=== PATIENT | female | born 1935 | race Caucasian/White ===

== ENCOUNTER 2021-01-11 09:20 | Day surgery (SDC) | payer MEDICARE, BC ==
[2021-01-09 13:18] VITALS: BMI 24.1
[~2021-01-11 09:20] MED LIST: ALBUTEROL NEB (CONC) 2.5 MG/0.5 ML INHALATION ONE; DEXAMETHASONE SOD PHOSPHATE 4 MG/ML 1 ML VIAL IV ONE; LACTATED RINGERS 1,000 ML IV SCH; LIDOCAINE 1% (10MG/ML) FOR IV START INTRADERMA PRN; LIDOCAINE 2% (PF) 20 MG/ML 5 ML VIAL INHALATION ONE; LIDOCAINE VISCOUS 300 MG/15 ML CUP MUCOUS MEM ONE; ONDANSETRON 4 MG/2 ML VIAL IVP ONE; SODIUM CHLORIDE 0.9% 1,000 ML IV SCH
--- NOTE | 2021-01-11 11:45 | CT ---
EXAMINATION TYPE: CT Chest tana June Protocol DATE OF EXAM: 01/11/2021 COMPARISON: None HISTORY: Navigational bronchoscopy. CT DLP: 543.8 mGycm Automated exposure control for dose reduction was used. FINDINGS: There are multiple pulmonary nodules present. In the right upper lobe on axial image #15 there is a 1 3 mm nodule with pleural extensions which shows soft tissue in lobular contour. In the left upper lob e on axial image #16, 15 Groundglass opacity present as well as a soft tissue nodule measuring 6 mm. Groundglass nodularity pr esent in the right upper lobe on axial image 11. On axial image #19 in the subpleural location is a 3 mm nodule right upper lobe. Groundglass nodule present in the subpleural location right upper lobe l aterally on axial image 21. In the right hilar location there is a spiculated mass measuring 2.5 cm, axial image 32, right middle lobe. There are scattered areas of mosaic perfusion at the lung bases. T here is no pleural or pericardial effusion. Lack of intravenous contrast could compromise sensitivity. Atheromatous changes are present within th e aorta. There is coronary artery calcification present. Aortic calcification is also seen. No definite adrenal mass. No mediastinal, axillary, or hilar adenopathy evident. IMPRESSION: FINDINGS MAY REPRESENT BRONCHOGENIC CARCINOMA, METASTATIC DISEASE NOT EXCLUDED. CORONARY ARTERY DISEA SE. ADDITIONAL FINDINGS ABOVE.
[2021-01-11] MEDS ORDERED: GLYCOPYRROLATE 0.2 MG/ML 2 ML VIAL ONE (12:47)
[2021-01-11] MEDS ORDERED: PROPOFOL 10 MG/ML 20 ML VIAL IV ONE (12:47)
[2021-01-11] MEDS ORDERED: SUCCINYLCHOLINE CHLORIDE 100 MG/5 ML SYR IV ONE (12:47)
[2021-01-11] MEDS ORDERED: fentaNYL (PF) 50 MCG/ML 2 ML AMP ONE (12:47)
[2021-01-11] MEDS ORDERED: ePHEDrine SULFATE/0.9% NACL/PF 50 MG/5 ML SYRINGE IV ONE (12:47)
[2021-01-11] MEDS ORDERED: LIDOCAINE 1% INJ 10MG/ML (20 ML MDV) ONE (12:47)
--- NOTE | 2021-01-11 13:52 | P.PCN ---
Date of Procedure: 01/11/21 Preoperative Diagnosis: Right middle lobe mass Postoperative Diagnosis: Right middle lobe mass Procedure(s) Performed: 1 Navigational bronchoscopy 2 transbronchial biopsy of the right middle lobe mass 3 transbronchial needle aspirate of the right middle lobe mass 4 transbronchial brushing of the right middle lobe mass 5 transbronchial needle aspirate of right paratracheal lymph node, station 4R. Anesthesia: GETA Surgeon: Suzie Unger Manager Internal #1: Jackie Long Estimated Blood Loss (ml): 0 Pathology: other Condition: stable Disposition: same day Operative Findings: Indication, right middle lobe mass, right paratracheal lymph node This procedure was done under general anesthesia. There is a navigational bronchoscopy. The patient initially had a CAT scan of the chest utilizing the [employer] protocol. The images were uploaded into the software and the right middle lobe mass was identified and appropriate calibrations and mapping was done. Following that, all of this information was uploaded into the [employer] navigational tower. The patient was brought into the endoscopy suite. The patient was intubated by [employer]. The patient had a 7.5 ET tube placed and she was secured in place. Following that, flexible bronchoscope was introduced through the orotracheal tube and an airway inspection was done. The visualized airways included the mid and the distal trachea, bilateral mainstem bronchi, right upper lobe bronchus, bronchus intermedius, right middle lobe and right lower lobe bronchus and the various 10 segments on the right. Bronchoscope was moved to the left and the visualized airways included the left mainstem bronchus, left upper lobe bronchus and left lower lobe bronchus and the various 8 segments on the left. No evidence of any endobronchial lesions or tumors. No foreign bodies. No mucosal abnormalities identified. Using navigational guidance, the bronchoscope was directed to the right middle lobe. The bronchoscope was later on medicated to the lateral segment of the right middle lobe. Using a navigational for sepsis, transbronchial biopsies of the right middle lobe mass was done with great accuracy. Several biopsies were obtained. Following that, transbronchial needle aspirate of the right middle l obe with was done and transbronchial brushings of the right middle lobe mass was done using navigational guidance. Following that, bronchoscope was moved to the distal trachea and using a 19-gauge histology [place] needle biopsy of the right paratracheal lymph node was done, station 4R. Total of 3 passes were taken. No evidence of an endobronchial bleeding. Therapeutic airway suctioning was done. Bronchoscope was removed. Patient was extubated and transferred to recovery in stable condition. Chest x-rays to follow to rule out any complications or pneumothorax.
[2021-01-11 13:58] VITALS: RESP 16; TEMP 97
--- NOTE | 2021-01-11 14:21 | XR ---
EXAMINATION TYPE: XR chest 1V portable DATE OF EXAM: 01/11/2021 COMPARISON: CT chest same day HISTORY: Status post bronchoscopy, right lung biopsy TECHNIQUE: Single frontal view of the chest is obtained. FINDINGS: There is abnormal increased attenuation present in the right infrahilar location. No evide nt pneumothorax or pleural effusion. Cardiac mediastinal silhouette within normal limits. Additional nodularity noted in the right upper lobe. IMPRESSION: No evident pneumothorax status post right lung biopsy.
[2021-01-11 14:47] VITALS: BP 116/62; PULSE 77
== END 2021-01-11 15:11 | disposition home or self-care (01) ==
LOC: ORWHC2ENDO 09:20
PROVIDERS: ATTEND Internal Medicine Critical Care Medicine
DX: C34.2 Malignant neoplasm of middle lobe, bronchus or lung (principal); F17.200 Nicotine dependence, unspecified, uncomplicated; J44.9 Chronic obstructive pulmonary disease, unspecified; G56.00 Carpal tunnel syndrome, unspecified upper limb; I10 Essential (primary) hypertension; Z82.49 Family history of ischemic heart disease and other diseases of the circulatory system; Z80.8 Family history of malignant neoplasm of other organs or systems; Z80.1 Family history of malignant neoplasm of trachea, bronchus and lung; Z90.710 Acquired absence of both cervix and uterus; Z98.890 Other specified postprocedural states; Z88.7 Allergy status to serum and vaccine; Z79.899 Other long term (current) drug therapy; Z88.8 Allergy status to other drugs, medicaments and biological substances; Z91.040 Latex allergy status
CPT/HCPCS: 88104; 88305; 88173; 88342; 88341; 71045; 71250; 31628; 31629; 31623; 31627; J1100; J2405; J2001; J3010; J0330; J2704; 31625

== ENCOUNTER → 2021-01-19 | Outpatient (CLI) | payer MEDICARE, BC ==
--- NOTE | 2021-01-22 11:12 | PE ---
EXAMINATION TYPE: PET CT fusion whole body DATE OF EXAM: 01/19/2021 COMPARISON: Chest CT 01/11/2021 Prior PET/CT: None HISTORY: Solitary pulmonary nodule TECHNIQUE: Following the intravenous administration of 11.16 mCi of F-18 FDG, whole body images are performed from the skull base to the midthigh. Images are reviewed on the computer in the coronal, a xial, and sagittal planes. Reconstructed rotating images are created on independent workstation and reviewed on the computer. A localization and attenuation correction CT is performed in conjunction with the PET scan. DLP: 274.86 mGycm SCAN: Initial Blood glucose: 92 mg/dL Average Mediastinum SUV: 1.63 Average Liver SUV: 2.31 FINDINGS: NECK: There is intense uptake within the left and right prevertebral space. This may be within the r egion of the torus tubarius or possibly the superior tonsillar pillars. Recommend visualization is re commended. Consider neoplasm at this level. SUV values 3.8 on the left and 4.4 on the right. THORAX: There is a focus of radiotracer accumulation along the right suprahilar region with an SUV va lue of 4.3, image 82. ABDOMEN: No abnormal uptake PELVIS: No abnormal uptake OSSEOUS STRUCTURES: No abnormal uptake LOCALIZATION CT: Some beam hardening artifact appears to be present in the upper posterior nasal pass age. COMPARISON: The areas of pneumonitis within the lungs bilaterally do not have significant uptake. How ever, this could be below the threshold for PET scan and metastasis is not excluded. IMPRESSION: 1. Intense uptake right hilar region compatible with a neoplastic process. 2. Additional areas of hyperintensity in the region of the torus tubarius upper tonsillar pillars or posterior nasal pharynx. Recommend visualization is recommended. 3. Suspicious uptake not identified in areas of pneumonitis previous identified lung windows. However , this could be below the threshold for PET scan and metastasis is not excluded.
== END | disposition home or self-care (01) ==
LOC: RADPETMAIN 17:52
PROVIDERS: ATTEND Internal Medicine Critical Care Medicine
DX: R91.1 Solitary pulmonary nodule (principal)
CPT/HCPCS: 78816; A9552

== ENCOUNTER → 2021-01-26 | Outpatient (CLI) | payer MEDICARE, BC ==
--- NOTE | 2021-01-27 02:52 | MR ---
EXAMINATION TYPE: MR brain wo/w con DATE OF EXAM: 01/26/2021 COMPARISON: None HISTORY: Lung cancer. Prior CT fusion whole body. CONTRAST: Standard multiplanar, multisequence MRI departmental protocol utilizing 6 mL intravenous Gadavist yumiko olinium contrast. There is cerebral cortical atrophy. There is no mass effect nor midline shift. There is no sign of in tracranial hemorrhage. Diffusion images show no sign of an acute infarct. On the T2 and FLAIR images there is minimal increased signal in the white matter adjacent to the late ral ventricles. The brainstem is intact. Cerebellum is intact. Corpus callosum is intact. Sella turci ca appears normal. The contrast images show no pathologic enhancement. There is normal enhancement of the venous sinuses . There is some mild mucosal thickening in the maxillary sinuses. IMPRESSION: Mild atrophy. No evidence of metastatic disease. Minimal white matter signal changes could relate to microvascular ischemia.
== END | disposition home or self-care (01) ==
LOC: RADMRIMAIN 19:42
PROVIDERS: ATTEND Internal Medicine Hematology & Oncology
DX: G31.9 Degenerative disease of nervous system, unspecified (principal)
CPT/HCPCS: 70553; A9585

== ENCOUNTER → 2021-04-10 | Outpatient (CLI) | payer MEDICARE, BC ==
--- NOTE | 2021-04-10 16:13 | CT ---
EXAMINATION TYPE: CT chest wo/w con DATE OF EXAM: 04/10/2021 COMPARISON: None HISTORY: Lung cancer. CT DLP: 696 mGycm, Automated exposure control for dose reduction was used. CONTRAST: Performed injected with 100 mL of Isovue M300. TECHNIQUE: Axial images were obtained at 5 mm thick sections. Reconstructed images are reviewed on [employer] computer in the coronal plane. FINDINGS: Portion of the thyroid visualized is normal. There is a spiculated density at the lateral right apex measuring 0.9 cm. This appears stable from co mparison. Series 4 image 11. Some mild pneumonitis changes in the posterior lateral left apex. Punctate nodularities in the anterior right lung. Series 4 image 17. There is no area of pneumonitis in the periphery of the right upper lobe. Series 4 image 18. There is a spiculated mass measuring 2.1 cm in the right perihilar region. This was present previousl y. No enlarged mediastinal or hilar adenopathy is evident. The ascending aorta diameter at the level o f the main pulmonary artery is 3.3 cm. The main pulmonary artery diameter at the bifurcation is 1.9 cm. Mild coronary artery calcification is present. Limited CT sections are obtained through the upper abdomen. Abdomen is essentially unremarkable. IMPRESSIONS: 1. Stable suspicious findings within the right lung including a 0.9 cm nodule at the right apex and a 2 cm spiculated mass in the hilum, present on PET/CT of 01/19/2021
== END | disposition home or self-care (01) ==
LOC: RADCTMAIN 12:49
PROVIDERS: ATTEND Radiology Radiation Oncology
DX: C34.91 Malignant neoplasm of unspecified part of right bronchus or lung (principal); J18.9 Pneumonia, unspecified organism; R91.8 Other nonspecific abnormal finding of lung field
CPT/HCPCS: 82565; 84520; 71270; 36415; Q9967

== ENCOUNTER → 2021-11-26 | Outpatient (CLI) | payer MEDICARE, BC ==
[2021-11-26 13:31] LABS: African American GFR (CKD) >90 (>60 ml/min/1.73 sqM); Blood Urea Nitrogen 19 mg/dL (7-17); Non-African American GFR(CKD) 80 (>60 ml/min/1.73 sqM)
--- NOTE | 2021-11-26 15:03 | CT ---
EXAMINATION TYPE: CT chest wo/w con DATE OF EXAM: 11/26/2021 COMPARISON: CT dated 08/01/2021 HISTORY: Follow up for right sided lung cancer. CT DLP: 348.7 mGycm Automated exposure control for dose reduction was used. TECHNIQUE: CT scan of the chest is performed without and with IV Contrast, patient injected with 100ml mL of Iso esperanza 300. FINDINGS: LUNGS: Stable irregular lesion with spiculated margin in the right lung apex measuring 14 mm. The oth er previously seen scattered pulmonary nodules and areas of groundglass opacities are also stable wit hout interval progression. Newly seen small atelectasis in the lingular base. Persistent soft tissue thickening along the inferior aspect of the right oblique fissure. Apparent small soft tissue thicken ing at the central portion of the right middle lobe adjacent to the right side of the heart measuring 12 x 24 mm, attention on follow-up. Patent trachea and main bronchi. No pleural effusion. MEDIASTINUM: Persistent cardiomegaly. Extensive arterial atherosclerotic calcification and atheromato us plaques. Coronary arterial calcifications. No pericardial effusion. No progressive lymphadenopathy in the chest. OTHER: Heterogeneous thyroid gland with multiple left thyroid lobe lesions, please correlate with [facility] ultrasound results. Stable right breast calcification. 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 Severe diffuse osteopenia. IMPRESSION: Apparent more soft tissue thickening along the central portion of the right middle lobe, attention on follow-up. Further PET scan assessment can be considered. Newly seen small lingular basal atelectasis which can be also reassessed on the follow-up CT scan. The remainder of the previously seen lung lesions and nodules are stable without interval progression . Other interval changes and incidental findings as described above.
== END | disposition home or self-care (01) ==
LOC: RADCTMAIN 12:54
PROVIDERS: ATTEND Radiology Radiation Oncology
DX: C34.91 Malignant neoplasm of unspecified part of right bronchus or lung (principal); J98.11 Atelectasis
CPT/HCPCS: 82565; 84520; 71270; 36415; Q9967

== ENCOUNTER → 2022-05-16 | Outpatient (CLI) | payer MEDICARE, BC ==
--- NOTE | 2022-05-16 12:29 | CT ---
EXAMINATION TYPE: CT chest w con DATE OF EXAM: 05/16/2022 COMPARISON: 11/26/2021, 01/11/2021, PET scan 01/19/2021 HISTORY: Follow up for lung cancer. CT DLP: 160.6 mGycm Automated exposure control for dose reduction was used. TECHNIQUE: CT scan of the chest is performed with IV Contrast, patient injected with 70ml mL of Isovue 300. MIP Images are created on CT scanner and reviewed. 3D reconstructed images are created on an independent workstation and reviewed. FINDINGS: LUNGS: Stable irregular lesion with spiculated margin in the right lung apex measuring 14 mm. The oth er previously seen scattered pulmonary nodules and areas of groundglass opacities are also stable wit hout interval progression. Persistent soft tissue thickening along the inferior aspect of the right oblique fissure. Apparent sm all soft tissue thickening at the central portion of the right middle lobe adjacent to the right hilu m measuring 12 x 24 mm, attention on follow-up. Patent trachea and main bronchi. No pleural effusion. MEDIASTINUM: Persistent cardiomegaly. Extensive arterial atherosclerotic calcification and atheromato us plaques. Coronary arterial calcifications. No pericardial effusion. No progressive lymphadenopathy in the chest. OTHER: Heterogeneous thyroid gland with multiple left thyroid lobe lesions, please correlate with yroid ultrasound results. Stable right breast calcification. 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 Severe diffuse osteopenia. Multilevel degenerative disc disease and Schmorl's nodes. Multiple level m ild endplate for metastases. Stable intramuscular lipoma along the right lateral chest side wall enrike uring 1.8 cm. Small hiatal hernia. Small fat-containing bilateral posterior stable. There is a destructive soft tissue lesion involving the transverse process of T10 on the left measuri ng 3.7 cm. Subcentimeter hypodensity upper pole left kidney indeterminate size but statistically most likely related to cyst. There is a 2 cm soft tissue lipoma along the left lateral chest wall. IMPRESSION: 1. There is a 3.7 cm destructive mass involving the left transverse process of T10. Findings compatib le with metastatic lesion. 2. Soft tissue fullness and mass involving the right hilum again measures 12 x 24 mm and is stable. T his does correspond to the original PET scan abnormality seen 01/19/2021. However, there does appear t o be compromise of the adjacent bronchus with immediate and abrupt cut off of the bronchus. This coul d be correlated with bronchoscopy as clinically warranted. 3. Stable 1.4 cm spiculated right apical lung lesion. 4. The previously noted groundglass opacification and areas of nodularity are stable. The largest of these nodules measures 3.2 mm in the superior segment right lower lobe seen on axial image 35 is stab le prior exam as well as the exam of 01/11/2021. 5. Multinodular thyroid changes.
== END | disposition home or self-care (01) ==
LOC: RADCTMAIN 10:35
PROVIDERS: ATTEND Radiology Radiation Oncology
DX: C34.11 Malignant neoplasm of upper lobe, right bronchus or lung (principal); E04.2 Nontoxic multinodular goiter; R91.8 Other nonspecific abnormal finding of lung field
CPT/HCPCS: 82565; 84520; 71260; 36415; Q9967

== ENCOUNTER → 2022-06-14 | Outpatient (CLI) | payer MEDICARE, BC ==
--- NOTE | 2022-06-17 09:18 | PE ---
EXAMINATION TYPE: PET CT fusion skull to thigh DATE OF EXAM: 06/14/2022 COMPARISON: Prior PET/CT January 19, 2021. Most recent CT May 16, 2022. HISTORY: Lung cancer progress study. TECHNIQUE: Following the intravenous administration of 10.6 mCi of F-18 FDG, whole body images are p erformed from the skull base to the midthigh. Images are reviewed on the computer in the coronal, ax ial, and sagittal planes. Reconstructed rotating images are created on independent workstation and r eviewed on the computer. A localization and attenuation correction CT is performed in conjunction w ith the PET scan. Blood glucose level equals 93. SCAN: Subsequent Scan FINDINGS: SKULL BASE AND NECK: No new areas of abnormal hypermetabolic uptake. CHEST, MEDIASTINUM, AND HILAR REGION: Stable spiculated 1.2 x 1.1 cm lateral right upper lung nodule axial image 62 is ametabolic. Additional small nodules and focal groundglass opacities in the left up per lobe are redemonstrated and ametabolic. Persistent linear scarring and consolidation along the ri ght lung fissure anterior inferior aspect. Recent central nodularity now not as well identified. No a bnormal hypermetabolic uptake at this level extending from the right hilum is seen. Treated neoplasm suspected. No new areas of abnormal hypermetabolic uptake. ABDOMEN AND PELVIS: No adrenal masses. Normal excretion. No new areas of abnormal hypermetabolic upta ke. OSSEOUS STRUCTURES: Subtle destructive lesion with soft tissue mass posterior left 10th rib has mild hypermetabolic uptake measuring 4.2 x 2.5 cm is present in retrospect on most recent CT not clearly s een than older CTs. Max SUV is 3.8. OTHER CT: Exaggerated cervical curvature. Mild calcified plaque right carotid bulb. Heterogeneous lef t thyroid with left-sided nodules redemonstrated. Persistent cardiomegaly with severe three-vessel co ronary artery calcification. Few scattered colonic diverticula greatest in the sigmoid colon.. Uterus is surgically absent. Scatte red bilateral pelvic phleboliths. IMPRESSION: No abnormal hypermetabolic uptake to suggest active malignancy in the right lung. There i s however new destructive lytic posterior 10th rib lesion with soft tissue component consistent with osseous metastatic disease noted.
== END | disposition home or self-care (01) ==
LOC: RADPETMAIN 11:32
PROVIDERS: ATTEND Radiology Radiation Oncology
DX: C34.11 Malignant neoplasm of upper lobe, right bronchus or lung (principal); C34.2 Malignant neoplasm of middle lobe, bronchus or lung; F17.210 Nicotine dependence, cigarettes, uncomplicated; Z92.3 Personal history of irradiation; Z90.710 Acquired absence of both cervix and uterus; Z80.1 Family history of malignant neoplasm of trachea, bronchus and lung
CPT/HCPCS: 78815; A9552

== ENCOUNTER 2022-07-10 08:43 | Day surgery (SDC) | payer MEDICARE, BC ==
[~2022-07-10 08:43] MED LIST changes: -ALBUTEROL NEB (CONC) 2.5 MG/0.5 ML INHALATION ONE; +ALPRAZolam 0.25 MG TAB PO PRN; -DEXAMETHASONE SOD PHOSPHATE 4 MG/ML 1 ML VIAL IV ONE; +HYDROmorphone 0.5 MG/0.5 ML SYRINGE IVP PRN; -LACTATED RINGERS 1,000 ML IV SCH; -LIDOCAINE 1% (10MG/ML) FOR IV START INTRADERMA PRN; -LIDOCAINE 2% (PF) 20 MG/ML 5 ML VIAL INHALATION ONE; -LIDOCAINE VISCOUS 300 MG/15 ML CUP MUCOUS MEM ONE; -ONDANSETRON 4 MG/2 ML VIAL IVP ONE; -SODIUM CHLORIDE 0.9% 1,000 ML IV SCH
[2022-07-10 09:30] LABS: Mean Platelet Volume 8.5; Platelet Count 244 k/uL (150-450)
[2022-07-10 09:32] VITALS: TEMP 97.9
[2022-07-10 09:37] LABS: Prothrombin Time 10.6 sec (9.0-12.0)
[2022-07-10 11:30] VITALS: BP 112/72; PULSE 79; RESP 16
--- NOTE | 2022-07-10 11:57 | CT ---
EXAMINATION TYPE: CT biopsy st back/flank [facility] DATE OF EXAM: 07/10/2022 COMPARISON: 06/14/2022 HISTORY: Last paraspinal mass with destruction of the adjacent rib and vertebral segment CT DLP: 126.15 mGycm The procedure is discussed with the patient, the risks, complications, benefits and alternatives, wer e discussed and any questions were answered. Informed consent was obtained. The patient is placed p glendy on the CT table, prepped and draped in the usual sterile fashion. Utilizing a 18-gauge core biopsy needle access into the requested destructive mass along the posterio r chest wall and rib cage was achieved with single 18-gauge core sample obtained. Pathology confirme d pending. All elements of maximal barrier and sterile technique were utilized. The patient remaine d stable throughout the procedure with no immediate postprocedural complication. IMPRESSION: 1. Successful CT guided core biopsy of the requested destructive rib lesion. Pathology pending.
== END 2022-07-10 11:15 | disposition home or self-care (01) ==
LOC: RADPROMAIN 08:43
PROVIDERS: ATTEND Radiology Radiation Oncology
DX: C34.2 Malignant neoplasm of middle lobe, bronchus or lung (principal); C34.11 Malignant neoplasm of upper lobe, right bronchus or lung
CPT/HCPCS: 21920; 36415; 77012; 85049; 85610; 88305; 88341; 88342

== ENCOUNTER → 2022-08-07 | Outpatient (CLI) | payer MEDICARE, BC ==
[2022-08-07 11:44] LABS: African American GFR (CKD) >90 (>60 ml/min/1.73 sqM); Blood Urea Nitrogen 20 mg/dL (7-17); Non-African American GFR(CKD) 82 (>60 ml/min/1.73 sqM)
--- NOTE | 2022-08-07 12:54 | CT ---
EXAMINATION TYPE: CT brain w con DATE OF EXAM: 08/07/2022 COMPARISON: none HISTORY: Hx lung ca, observe for mets CT DLP: 1114 mGycm Automated exposure control for dose reduction was used. CONTRAST: CT scan of the head is performed with IV Contrast, patient injected with 70 mL of Isovue 300. FINDINGS: There is no abnormal enhancing mass or midline shift identified. Generalized degenerative changes wit h low-attenuation white matter. The globes are intact and and changes of chronic sinusitis. No enhan cing mass. Calvarium intact. IMPRESSION: Degenerative and nonspecific white matter changes most typical of remote ischemia. No enhancing mass. .
== END | disposition home or self-care (01) ==
LOC: RADCTMAIN 10:57
PROVIDERS: ATTEND Radiology Radiation Oncology
DX: C79.51 Secondary malignant neoplasm of bone (principal); C34.11 Malignant neoplasm of upper lobe, right bronchus or lung; C34.2 Malignant neoplasm of middle lobe, bronchus or lung; G31.9 Degenerative disease of nervous system, unspecified; G93.89 Other specified disorders of brain
CPT/HCPCS: 82565; 84520; 70460; 36415; Q9967

== ENCOUNTER → 2022-10-23 | Outpatient (CLI) | payer MEDICARE, BC ==
--- NOTE | 2022-10-23 16:59 | CT ---
EXAMINATION TYPE: CT ChestAbdPelvis w con CT DLP: 515.0 mGycm, Automated exposure control for dose reduction was used. DATE OF EXAM: 10/23/2022 4:24 PM COMPARISON: PET/CT 06/14/2022, CT chest 05/16/2022. CLINICAL INDICATION:Female, 87 years old with history of C79.51 C34.11 C34.2; PHH, lung ca Technique: Multiple axial images of the chest, abdomen, and pelvis were obtained following the intrav enous administration of 60 mL Isovue-300. 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 Two-dimensional coronal and s agittal reconstructions were obtained. Findings: CHEST: LUNGS/ PLEURA: No pleural effusion or pneumothorax. Stable spiculated lesion within the right lung ap ex measuring up to 14 mm. Stable scattered groundglass nodules with largest region in the left upper lobe. Additional stable lingular 3 mm pulmonary nodule (series 4, image 38) and right lower lobe 4 mm pulmonary nodule (series 4, image 4). No new or enlarging pulmonary nodules. Small fat-containing b ilateral Bochdalek hernias. AIRWAY: Patent and unremarkable.. HEART: Probably prominent size. No pericardial effusion. Coronary arterial calcifications. . MEDIASTINUM: Stable enlarged right hilar lymph node measuring 1.1 cm short axis. VASCULATURE: No aortic aneurysm. Extensive atherosclerotic calcification of the aorta and its branch es. MUSCULOSKELETAL: No acute osseous adenopathy. Redemonstration of destructive soft tissue mass involvi ng the transverse process of T10 on the left measuring 5.9 x 2.9 cm. There is extension into the pedi alejandra and posterior vertebral body at T10. This destroys the adjacent T10 left rib. Diffuse bone minera lization. SOFT TISSUES/LYMPH NODES: No axillary adenopathy. Stable intramuscular lipomas along the bilateral ch est [place]. LOWER NECK: Multinodular thyroid gland redemonstrated.. ABDOMEN: ABDOMEN LIVER: Unremarkable GALLBLADDER AND BILE DUCTS: Unremarkable. PANCREAS: Unremarkable. SPLEEN: Unremarkable. ADRENAL GLANDS: Unremarkable. KIDNEYS AND URETERS: No evidence of hydronephrosis or renal calculus. Stable subcentimeter left super ior pole hypodensity likely representing a cyst. PELVIS BLADDER: Unremarkable REPRODUCTIVE: The uterus is surgically absent. ABDOMEN & PELVIS STOMACH AND BOWEL: Small hiatal hernia, duodenum is unremarkable. Distal colonic diverticulosis witho ut evidence for acute diverticulitis. Enteric contrast reaches the cecum. No focal wall thickening or surrounding inflammatory changes. No evidence of bowel obstruction. PERITONEUM: No evidence of pneumoperitoneum or free fluid. VASCULATURE: Moderate atherosclerotic calcifications are present throughout the abdominal aorta and i ts branches. No abdominal aortic aneurysm. MUSCULOSKELETAL: No acute osseous abnormalities. No aggressive osseous lesion. Grade 1 anterolisthesi s of L4 on L5 without evidence of pars defects. Diffuse bone mineralization. LYMPH NODES: No gross evidence for lymphadenopathy. SOFT TISSUE/ABDOMINAL WALL: Unremarkable IMPRESSION: 1. Redemonstration of destructive soft tissue mass centered within the T10 left transverse process wi th extension into the vertebral body and adjacent left rib. This is consistent with metastatic diseas e. 2. Nonspecific enlarged right hilar lymph node. No FDG avidity identified on recent PET/CT. 3. Stable spiculated right upper lung nodule which was not FDG avid on prior exam. Additional small n odules and focal groundglass opacities in the lungs which did not demonstrate FDG avidity. This can b e related to treated neoplasm. Attention on follow-up examination. 4. Colonic diverticulosis without evidence for acute diverticulitis. 5. Multinodular thyroid changes.
== END | disposition home or self-care (01) ==
LOC: RADCTMAIN 14:07
PROVIDERS: ATTEND Radiology Radiation Oncology
DX: C79.51 Secondary malignant neoplasm of bone (principal); C34.11 Malignant neoplasm of upper lobe, right bronchus or lung; C34.2 Malignant neoplasm of middle lobe, bronchus or lung; R91.1 Solitary pulmonary nodule; K57.30 Diverticulosis of large intestine without perforation or abscess without bleeding; E04.2 Nontoxic multinodular goiter
CPT/HCPCS: 82565; 84520; 71260; 74177; 36415; Q9967

== ENCOUNTER → 2023-01-20 | Outpatient (CLI) | payer MEDICARE, BC ==
[2023-01-20 14:11] LABS: African American GFR (CKD) >90 (>60 ml/min/1.73 sqM); Blood Urea Nitrogen 18 mg/dL (7-17); Non-African American GFR(CKD) 79 (>60 ml/min/1.73 sqM)
--- NOTE | 2023-01-20 15:11 | CT ---
EXAMINATION TYPE: CT ChestAbdPelvis w con DATE OF EXAM: 01/20/2023 COMPARISON: 10/23/2022 HISTORY: lung ca CT DLP: 480.9 mGycm CONTRAST: CT scan of the chest, abdomen and pelvis is performed without Oral Contrast and with IV Contrast, pat ient injected with 100 mL of Isovue 300. CT Chest: LUNGS: The lungs are clear and free of infiltrate or atelectasis. Stable right upper lobe spiculated nodule measuring 1.1 cm versus 1.1 cm previously. Nodule within the lingula measures 3 cm. No new pul monary nodules identified. No pleural effusion or CT evidence of interstitial lung disease. MEDIASTINUM: Stable left-sided thyroid nodularity. Thoracic aorta is of normal caliber. The heart i s not enlarged. No evidence for mediastinal mass or adenopathy. HILAR STRUCTURES: Right hilar soft tissue is improved currently measuring 2 cm x 1.4 cm versus 2.4 x 1.9 cm previously. OTHER: Expansile destructive soft tissue mass at the left T10 transverse process extending into the r ib is redemonstrated however smaller in size and currently measures 5.2 x 2.3 cm versus 5.9 x 2.[address] ABDOMEN AND PELVIS FINDINGS: LIVER/GB: No calcified gallstones. No space occupying hepatic lesion. Biliary tree is of normal ca liber. PANCREAS: No inflammation. No distinct mass. SPLEEN: No splenic enlargement. No lesion seen. ADRENALS: No nodule. No thickening. KIDNEYS/BLADDER: No hydronephrosis. No nephrolithiasis. No distinct renal mass. BOWEL: Normal appendix. Normal bowel caliber. No inflammation. GENITAL ORGANS: Hysterectomy changes seen. LYMPH NODES: No greater than 1cm abdominal or pelvic lymph nodes are appreciated. AORTA: No significant abnormality. OSSEOUS STRUCTURES: Osseous structures demonstrate diffuse patchy attenuation could be reflective of diffuse bony osteopenia anemia however small lucent lesions are suggested within the femoral necks bi laterally greater on the left. Osseous metastatic disease is difficult to exclude. Correlate with bon e scan. OTHER: No significant additional abnormality is seen. IMPRESSION: 1. Expansile destructive T10 lesion on the left described previously persists although smaller in siz e. As noted there is heterogeneity of the osseous structures diffusely with small lucent lesions sugg ested within the femoral necks. Bony metastatic disease is not excluded. Consider bone scan for furth er evaluation. 2. Stable spiculated nodule right upper lobe and slightly improved right hilar soft tissue.
== END | disposition home or self-care (01) ==
LOC: RADCTMAIN 13:23
PROVIDERS: ATTEND Radiology Radiation Oncology
DX: C79.51 Secondary malignant neoplasm of bone (principal); C34.11 Malignant neoplasm of upper lobe, right bronchus or lung; M89.9 Disorder of bone, unspecified; R91.1 Solitary pulmonary nodule; Z92.3 Personal history of irradiation; Z90.710 Acquired absence of both cervix and uterus; Z80.1 Family history of malignant neoplasm of trachea, bronchus and lung
CPT/HCPCS: 82565; 84520; 71260; 74177; 36415; Q9967

== ENCOUNTER → 2023-04-29 | Outpatient (CLI) | payer MEDICARE, BC ==
[2023-04-29 13:49] LABS: African American GFR (CKD) >90 (>60 ml/min/1.73 sqM); Blood Urea Nitrogen 24 mg/dL (7-17); Non-African American GFR(CKD) 86 (>60 ml/min/1.73 sqM)
--- NOTE | 2023-04-29 15:48 | CT ---
EXAMINATION TYPE: CT ChestAbdPelvis w con CT DLP: 580.6 mGycm, Automated exposure control for dose reduction was used. 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 Technique: Multiple axial images of the chest, abdomen, and pelvis were obtained following the intrav enous administration of 100 mL Isovue 370. Oral contrast was administered. Two-dimensional coronal an d sagittal reconstructions were obtained. Findings: CHEST: LUNGS/ PLEURA: No pleural effusion or pneumothorax. Stable spiculated lesion within the right lung ap ex measuring up to 14 mm. Stable scattered groundglass nodules with largest region in the left upper lobe. Additional stable lingular 3 mm pulmonary nodule. No new or enlarging pulmonary nodules. Linear scarring and/or atelectasis within the right middle lobe. AIRWAY: Patent and unremarkable.. HEART: Mildly prominent in size. No pericardial effusion. Coronary arterial calcifications. . MEDIASTINUM: Stable enlarged right hilar lymph node measuring 2.2 x 1.3 cm when measuring with simila r technique. VASCULATURE: No aortic aneurysm. Extensive atherosclerotic calcification of the aorta and its branch es. MUSCULOSKELETAL: No acute osseous abnormality. Redemonstration of destructive soft tissue mass involv ing the transverse process of T10 on the left measuring 5.9 x 2.9 cm. There is extension into the ped icle and posterior vertebral body at T10. This destroys the adjacent T10 left rib. This demonstrates a more sclerotic peripheral appearance on today's exam. Diffuse bone demineralization. SOFT TISSUES/LYMPH NODES: No axillary adenopathy. Stable intramuscular lipomas along the bilateral ch est [place]. Stable calcification within the right breast. LOWER NECK: Multinodular thyroid gland redemonstrated.. ABDOMEN: ABDOMEN LIVER: Unremarkable GALLBLADDER AND BILE DUCTS: Unremarkable. PANCREAS: Unremarkable. SPLEEN: Redemonstration of subcentimeter hypodense focus within the spleen which is too small charact erize. ADRENAL GLANDS: Unremarkable. KIDNEYS AND URETERS: No evidence of hydronephrosis or renal calculus. Stable subcentimeter left super ior pole hypodensity likely representing a cyst. PELVIS BLADDER: Unremarkable REPRODUCTIVE: The uterus is surgically absent. ABDOMEN & PELVIS STOMACH AND BOWEL: Small hiatal hernia, duodenum is unremarkable. Distal colonic diverticulosis witho ut evidence for acute diverticulitis. Enteric contrast reaches the cecum. No focal wall thickening or surrounding inflammatory changes. No evidence of bowel obstruction. PERITONEUM: No evidence of pneumoperitoneum or free fluid. VASCULATURE: Moderate atherosclerotic calcifications are present throughout the abdominal aorta and i ts branches. No abdominal aortic aneurysm. MUSCULOSKELETAL: No acute osseous abnormalities. No new aggressive osseous lesions. Grade 1 anterolis thesis of L4 on L5 without evidence of pars defects. Diffuse bone mineralization. LYMPH NODES: No gross evidence for lymphadenopathy. SOFT TISSUE/ABDOMINAL WALL: Unremarkable IMPRESSION: 1. Redemonstration of destructive soft tissue mass centered within the T10 left transverse process wi th extension into the vertebral body and adjacent left rib. This demonstrates a sclerotic peripheral appearance now suggesting treated metastatic disease. Correlate with PET/CT as clinically indicated. 2. Similar nonspecific enlarged right hilar lymph node. 3. Stable spiculated right upper lung nodule. Additional stable small nodules and focal groundglass o pacities in the lungs.
== END | disposition home or self-care (01) ==
LOC: RADCTMAIN 12:57
PROVIDERS: ATTEND Radiology Radiation Oncology
DX: C79.51 Secondary malignant neoplasm of bone (principal); R59.0 Localized enlarged lymph nodes; R91.8 Other nonspecific abnormal finding of lung field; Z90.710 Acquired absence of both cervix and uterus; Z92.3 Personal history of irradiation; Z80.1 Family history of malignant neoplasm of trachea, bronchus and lung
CPT/HCPCS: 82565; 84520; 71260; 74177; 36415; Q9967

== ENCOUNTER → 2024-04-14 | Outpatient (CLI) | payer MEDICARE, BC ==
[2024-04-14 16:44] LABS: African American GFR (CKD) 70 (>60 ml/min/1.73 sqM); Blood Urea Nitrogen 25 mg/dL (7-17); Non-African American GFR(CKD) 61 (>60 ml/min/1.73 sqM)
--- NOTE | 2024-04-15 08:43 | CT ---
EXAMINATION TYPE: CT brain wo/w con DATE OF EXAM: 04/14/2024 COMPARISON: None HISTORY: Unspecified disorder of brain CT DLP: 2072mGycm CONTRAST: CT scan of the head is performed with IV Contrast, patient injected with 100ml mL of Isovue 370. Unenhanced followed by contrast enhanced CT of the brain is submitted for evaluation. The ventricles are midline. There is no evidence for intracranial hemorrhage or extra-axial collection. No mass e ffects are identified. Visualized bony calvarium is intact. Contrast is administered and no enhanci ng lesions are detected. No pathologic enhancement is identified. If symptoms persist consider MRI. IMPRESSION: No enhancing lesions are identified. [facility], , 04/15/2024 8:41 AM
== END | disposition home or self-care (01) ==
LOC: RADCTMAIN 15:39
PROVIDERS: ATTEND Radiology Radiation Oncology
DX: C79.51 Secondary malignant neoplasm of bone
CPT/HCPCS: 36415; 70470; 82565; 84520